=== PATIENT | male | born 1980 | race Caucasian/White ===

== ENCOUNTER 2018-02-14 15:01 | Emergency (ER) | payer MEDICAID, OTHER ==
[~2018-02-14] VITALS: Ht 180.3 cm; Wt 72.0 kg
[~2018-02-14 15:01] MED LIST: NO HOME MEDS
[2018-02-14] MEDS ORDERED: SULF1TAB49 PO (15:35)
[2018-02-14 15:48] VITALS: BP 115/71
== END 2018-02-14 15:49 | disposition home or self-care (01) ==
LOC: ER 15:02
DX: L03.115 Cellulitis of right lower limb (principal); G89.29 Other chronic pain; F17.200 Nicotine dependence, unspecified, uncomplicated; Z60.2 Problems related to living alone; Z98.890 Other specified postprocedural states; Z59.0 Homelessness; Z98.84 Bariatric surgery status; Z88.0 Allergy status to penicillin; Z88.1 Allergy status to other antibiotic agents; Z79.899 Other long term (current) drug therapy
CPT/HCPCS: 87070; 87077; 87186; 99284

== ENCOUNTER 2021-07-08 10:37 | Emergency (ER) | payer MEDICAID | END 2021-07-08 14:41 | disposition left against medical advice (07) | LOC: ER 10:37 | DX: Z00.8 Encounter for other general examination (principal); Z53.21 Procedure and treatment not carried out due to patient leaving prior to being seen by health care provider ==

== ENCOUNTER 2021-09-05 12:06 | Emergency (ER) | payer MEDICAID ==
[~2021-09-05] VITALS: Ht 180.3 cm; Wt 54.0 kg
[2021-09-05 13:32] LABS: BASOPHILS # (AUTO) 0.1 X10'3 (0-0.2); BASOPHILS % (AUTO) 0.4 % (0-1); EOSINOPHILS # (AUTO) 0.2 X10'3 (0-0.9); EOSINOPHILS % (AUTO) 1.6 % (0-6); HEMATOCRIT 40.7 % (42.0-52.0); HEMOGLOBIN 13.8 g/dl (14.0-17.9); LYMPHOCYTES # (AUTO) 1.2 X10'3 (1.1-4.8); LYMPHOCYTES % (AUTO) 8.6 % (21-51); MEAN CORPUSCULAR HGB CONC 33.9 g/dL (33.0-36.5); MEAN CORPUSCULAR VOLUME 91.5 FL (78-98); MONOCYTES # (AUTO) 1.3 X10'3 (0-0.9); MONOCYTES % (AUTO) 9.9 % (2-12); NEUTROPHILS # (AUTO) 10.6 X10'3 (1.8-7.7); NEUTROPHILS % (AUTO) 79.5 % (42-75); PLATELET COUNT 422 X10'3 (140-440); RED BLOOD COUNT 4.45 X10'6 (4.70-6.10); RED CELL DISTRIBUTION WIDTH 14.2 % (11.5-14.5); WHITE BLOOD COUNT 13.4 X10'3 (4.5-11.0)
[2021-09-05 13:46] LABS: ALANINE AMINOTRANSFERASE 24 U/L (12-78); ALBUMIN 3.2 G/DL (3.4-5.0); ALBUMIN/GLOBULIN RATIO 0.7 (1.1-1.5); ALKALINE PHOSPHATASE 124 IU/L (46-116); ANION GAP 6 (8-16); ASPARTATE AMINO TRANSFERASE 19 U/L (10-37); BILIRUBIN,TOTAL 0.4 MG/DL (0.1-1.0); BLOOD UREA NITROGEN 13 MG/DL (7-18); BUN/CREATININE RATIO 11.7 (5.4-32.0); CALCIUM 8.7 MG/DL (8.5-10.1); CHLORIDE 103 MMOL/L (99-107); CREATININE 1.11 MG/DL (0.60-1.10); GLUCOSE 112 MG/DL (70-104); LIPASE < 50 U/L (73-393); POTASSIUM 4.3 MMOL/L (3.5-5.1); SODIUM 139 MMOL/L (135-145); TOTAL CARBON DIOXIDE 30.4 MMOL/L (24-32); TOTAL PROTEIN 7.5 G/DL (6.4-8.2); eGFR 73 ML/MIN
[2021-09-05 14:17] LABS: CLARITY,URINE CLEAR (Clear); COLOR,URINE YELLOW (Yellow); GLUCOSE, URINE NEGATIVE (Neg); KETONES,URINE 15 mg/dl (Neg); LEUKOCYTE ESTERASE ,URINE NEGATIVE (Neg); NITRITES, URINE NEGATIVE (Neg); OCCULT BLOOD,URINE NEGATIVE (Neg); PH,URINE 5.5 (4.8-8.0); PROTEIN,URINE TRACE mg/dl (Neg); UROBILINOGEN,URINE 0.2 E.U/dL (0.2-1.0)
[2021-09-05 14:23] LABS: UA COLLECTION TYPE CLN CATCH MIDSTREAM
[2021-09-05 14:24] LABS: BACTERIA,URINE NONE SEEN /HPF (Neg); MUCUS STRANDS MODERATE /LPF (Neg); RBC,URINE NONE SEEN /HPF (0-2); SQUAMOUS EPITHELIAL CELL,UR FEW /LPF (FEW); WBC,URINE NONE SEEN /HPF (0-4)
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
[2021-09-05] MEDS ORDERED: acetaminophen 325mg tablet PO ONE (16:55)
[2021-09-05 17:33] LABS: ETHANOL < 0.010 GM/DL (0.0-0.010)
[2021-09-05] MEDS ORDERED: proparacaine 0.5% ophthalmic drops 15ml RIGHTEYE ONE (17:45)
[2021-09-05] MEDS ORDERED: ondansetron 4mg rapidly disintigrating tab PO ONE (17:45)
[2021-09-05] MEDS ORDERED: mag hydrox/Alum hydrox/simeth 30ml oral suspension PO ONE (17:45)
[2021-09-05] MEDS ORDERED: pantoprazole 40mg Tablet.DR PO ONE (17:45)
--- NOTE | 2021-09-05 18:00 | NUR ---
provider at bedside to assess pt's eye. pt given tylenol and oral zofran, requesting dinner tray. per provdier, wait to see if pt tolerates po meds prior to food.
[2021-09-05] MEDS ORDERED: ciprofloxacin 0.3% 2.5ml ophthalmic solution RIGHTEYE ONE (19:00)
[2021-09-05 20:30] LABS: URINE AMPHETAMINE SCREEN POSITIVE (Neg); URINE BARBITUATE SCREEN NEGATIVE (Neg); URINE BENZODIAZEPINES SCREEN NEGATIVE (Neg); URINE CANNABINOID SCREEN POSITIVE (Neg); URINE COCAINE SCREEN NEGATIVE (Neg); URINE METHADONE SCREEN NEGATIVE (Neg); URINE OPIATE SCREEN NEGATIVE (Neg); URINE PHENCYCLIDINE SCREEN NEGATIVE (Neg)
--- NOTE | 2021-09-05 20:53 | NUR ---
The patient moved to bed 22 in the ER overflow. He was calm and cooperative. He answered all the assessment questions appropriately and politely. He denies A/V hallucinations currently. He denies pain. He denies being suicidal. He does admit to some mild anxiety. He admits to meth use then added, "I don't plan to do it ever again" He was provided a snack and eye drops given. Patient made aware of phone and visiting hours.
--- NOTE | 2021-09-05 22:43 | NUR ---
Packet sent to [facility]
--- NOTE | 2021-09-06 00:33 | NUR ---
The patient appears to be sleeping
--- NOTE | 2021-09-06 02:05 | NUR ---
The patient appears to be sleeping
--- NOTE | 2021-09-06 04:26 | NUR ---
The patient appears to be sleeping
--- NOTE | 2021-09-06 06:12 | NUR ---
The patient appeared to have slept well throughout the night
--- NOTE | 2021-09-06 06:52 | NUR ---
The patient has a productive cough with clear sputum. He was asking for a bed staples and he was made aware of where the bathroom was.
--- NOTE | 2021-09-06 07:39 | NUR ---
THe patient is resting on his bed.
--- NOTE | 2021-09-06 09:16 | NUR ---
THe patient is resting on his bed
--- NOTE | 2021-09-06 09:49 | NUR ---
Patient's father, Edgar Anders, [phone]
--- NOTE | 2021-09-06 10:11 | NUR ---
[facility] at the bedside and interviewing the patient
--- NOTE | 2021-09-06 11:26 | NUR ---
The patient is bored and restless but cooperative
--- NOTE | 2021-09-06 12:21 | NUR ---
The patient ate 100% of his lunch. He is alert, oriented, pleasant and cooperative.
--- NOTE | 2021-09-06 13:09 | NUR ---
The patient very irritable and wanting staff to do things that he can do for himself ie in the am he asked for a bedpan, etc. When he wanted his curtain shut he was encouraged to get out of bed and close the curtain he became angry and making statements, "I should call the labor board. People aren't doing their jobs" He was made aware that the behavior was inappropriate.
--- NOTE | 2021-09-06 13:21 | NUR ---
Nurse to nurse with Chasity at [facility], [place]
--- NOTE | 2021-09-06 13:42 | NUR ---
The patient has been accepted at [facility]. [facility] street flusher driver will be here at 1430 to pick him up.
[2021-09-06 14:51] VITALS: BP 95/55
== END 2021-09-06 14:55 ==
LOC: ER 12:07
DX: S05.01XA Injury of conjunctiva and corneal abrasion without foreign body, right eye, initial encounter (principal); F31.9 Bipolar disorder, unspecified; Z20.822 Contact with and (suspected) exposure to COVID-19; F20.9 Schizophrenia, unspecified; R45.850 Homicidal ideations; F19.10 Other psychoactive substance abuse, uncomplicated; R10.31 Right lower quadrant pain; G89.29 Other chronic pain; F17.200 Nicotine dependence, unspecified, uncomplicated; F15.90 Other stimulant use, unspecified, uncomplicated; Z59.00 Homelessness unspecified; Z72.89 Other problems related to lifestyle; Z98.890 Other specified postprocedural states; Z88.0 Allergy status to penicillin; Z88.1 Allergy status to other antibiotic agents; X58.XXXA Exposure to other specified factors, initial encounter; Y93.89 Activity, other specified; Y92.89 Other specified places as the place of occurrence of the external cause; Y99.8 Other external cause status
CPT/HCPCS: 36415; 80053; 80305; 80320; 81001; 83690; 84145; 84443; 85025; 87635; 99285; C9803

== ENCOUNTER 2021-09-09 21:03 | Emergency (ER) | payer MEDICAID | END 2021-09-09 22:21 | disposition left against medical advice (07) | LOC: ER 21:04 | DX: R11.10 Vomiting, unspecified (principal); R50.9 Fever, unspecified; Z53.21 Procedure and treatment not carried out due to patient leaving prior to being seen by health care provider ==

== ENCOUNTER 2022-01-23 10:29 | Emergency (ER) | payer MEDICAID ==
[~2022-01-23] VITALS: Ht 175.3 cm; Wt 60.0 kg
[2022-01-23 10:47] VITALS: BP 137/82
[2022-01-23] MEDS ORDERED: ibuprofen tablet 400 MG TABLET PO ONE (14:50)
== END 2022-01-23 15:08 | disposition home or self-care (01) ==
LOC: ER 10:29
DX: M25.511 Pain in right shoulder (principal); G89.29 Other chronic pain; F31.9 Bipolar disorder, unspecified; F29 Unspecified psychosis not due to a substance or known physiological condition; F15.10 Other stimulant abuse, uncomplicated; F11.10 Opioid abuse, uncomplicated
CPT/HCPCS: 73030; 99283; A4565

== ENCOUNTER 2022-01-25 23:13 | Emergency (ER) | payer MEDICAID ==
[~2022-01-25] VITALS: Ht 180.3 cm; Wt 61.3 kg
== END 2022-01-26 00:16 | disposition home or self-care (01) ==
LOC: ER 23:14
DX: S90.822A Blister (nonthermal), left foot, initial encounter (principal); S90.821A Blister (nonthermal), right foot, initial encounter; G89.29 Other chronic pain; F31.9 Bipolar disorder, unspecified; F20.9 Schizophrenia, unspecified; F15.90 Other stimulant use, unspecified, uncomplicated; Z98.890 Other specified postprocedural states; Z72.89 Other problems related to lifestyle; Z88.0 Allergy status to penicillin; Z88.1 Allergy status to other antibiotic agents; X58.XXXA Exposure to other specified factors, initial encounter; Y93.89 Activity, other specified; Y92.89 Other specified places as the place of occurrence of the external cause; Y99.8 Other external cause status
CPT/HCPCS: 99281

== ENCOUNTER 2022-05-03 17:40 | Emergency (ER) | payer MEDICAID ==
[~2022-05-03] VITALS: Ht 162.6 cm; Wt 50.0 kg
[2022-05-03] MEDS ORDERED: albuterol 2.5 MG/3 ML nebule NEB ONE (21:25)
[2022-05-03] MEDS ORDERED: diphenhydrAMINE 25mg capsule PO ONE (21:25)
[2022-05-03] MEDS ORDERED: SULF1TAB49 PO (22:17)
[2022-05-03 22:20] VITALS: BP 142/78
== END 2022-05-03 22:27 | disposition home or self-care (01) ==
LOC: ER 17:41
DX: F15.10 Other stimulant abuse, uncomplicated (principal); F31.9 Bipolar disorder, unspecified; Z88.0 Allergy status to penicillin; Z88.1 Allergy status to other antibiotic agents
CPT/HCPCS: 71045; 94640; 94760; 99283; Q0163

== ENCOUNTER 2022-05-13 18:38 | Emergency (ER) | payer MEDICAID ==
[~2022-05-13] VITALS: Ht 165.1 cm; Wt 65.9 kg
[2022-05-13 19:23] VITALS: BP 106/81
[2022-05-13] MEDS ORDERED: albuterol 2.5 MG/3 ML nebule NEB ONE (20:10)
[2022-05-13] MEDS ORDERED: vancomycin/NS 1 GM ADD-VANTAGE 250 ML IV ONE (20:10)
[2022-05-13] MEDS ORDERED: ceFAZolin 1GM/D5W- ADD-VANTAGE 50 ML IV ONE (20:10)
[2022-05-13] MEDS ORDERED: normal saline 1000ML IV soln IVB ONE (20:20)
[2022-05-13 20:46] LABS: BASOPHILS # (AUTO) 0.1 X10'3 (0-0.2); BASOPHILS % (AUTO) 0.7 % (0-1); EOSINOPHILS # (AUTO) 0.3 X10'3 (0-0.9); EOSINOPHILS % (AUTO) 2.8 % (0-6); HEMATOCRIT 29.7 % (42.0-52.0); HEMOGLOBIN 9.9 g/dl (14.0-17.9); LYMPHOCYTES # (AUTO) 1.4 X10'3 (1.1-4.8); LYMPHOCYTES % (AUTO) 12.3 % (21-51); MEAN CORPUSCULAR HEMOGLOBIN 29.4 PG (27.0-31.0); MEAN CORPUSCULAR HGB CONC 33.3 g/dL (33.0-36.5); MEAN CORPUSCULAR VOLUME 88.3 FL (78-98); MEAN PLATELET VOLUME 6.4 FL (7.4-10.4); MONOCYTES # (AUTO) 1.1 X10'3 (0-0.9); MONOCYTES % (AUTO) 9.1 % (2-12); NEUTROPHILS # (AUTO) 8.7 X10'3 (1.8-7.7); NEUTROPHILS % (AUTO) 75.1 % (42-75); PLATELET COUNT 411 X10'3 (140-440); RED BLOOD COUNT 3.36 X10'6 (4.70-6.10); RED CELL DISTRIBUTION WIDTH 14.4 % (11.5-14.5); WHITE BLOOD COUNT 11.6 X10'3 (4.5-11.0)
[2022-05-13 21:00] LABS: ANION GAP 9 (8-16); BLOOD UREA NITROGEN 13 MG/DL (7-18); BUN/CREATININE RATIO 16.9 (5.4-32.0); CALCIUM 8.2 MG/DL (8.5-10.1); CHLORIDE 110 MMOL/L (99-107); CREATININE 0.77 MG/DL (0.60-1.10); GLUCOSE 169 MG/DL (70-104); SODIUM 150 MMOL/L (135-145); TOTAL CARBON DIOXIDE 31.4 MMOL/L (24-32); eGFR > 90 ML/MIN
[2022-05-13 21:01] LABS: ALANINE AMINOTRANSFERASE 16 U/L (12-78); ALBUMIN 2.2 G/DL (3.4-5.0); ALBUMIN/GLOBULIN RATIO 0.5 (1.1-1.5); ALKALINE PHOSPHATASE 97 IU/L (46-116); ASPARTATE AMINO TRANSFERASE 14 U/L (10-37); BILIRUBIN,TOTAL 0.1 MG/DL (0.1-1.0); TOTAL PROTEIN 6.5 G/DL (6.4-8.2)
[2022-05-13 21:11] LABS: POTASSIUM 2.9 MMOL/L (3.5-5.1)
[2022-05-13] MEDS ORDERED: POTASSIUM BICARB 20meq eff tab 20 MEQ TABLET.EFF PO ONE (21:55)
[2022-05-13] MEDS ORDERED: HYDROcodone/acetaminophen 5mg/325mg tablet PO ONE (22:10)
[2022-05-13] MEDS ORDERED: HYDR-3965 PO (22:12)
[2022-05-13] MEDS ORDERED: SULF1TAB49 PO (22:12)
--- NOTE | 2022-05-13 23:14 | NUR ---
PATIENT WAS BEING DC PER NURSE. PATIENT IS BEING RUDE AND DEMANDING, URINATING IN A DRINK CUP. IV WAS BEING REMOVED BY NURSE WHEN PATIENT STARTED TO CURSE AT THE NURSE AND PULLED OUT HIS OWN IV HASTILY. SECURITY CALLED TO ROOM TO SUPERVISE PATIENT DEPARTURE FROM ER.
== END 2022-05-13 23:16 | disposition home or self-care (01) ==
LOC: ER 18:39
DX: L03.818 Cellulitis of other sites (principal); Z20.822 Contact with and (suspected) exposure to COVID-19; E87.6 Hypokalemia; F20.9 Schizophrenia, unspecified; F31.9 Bipolar disorder, unspecified; F17.200 Nicotine dependence, unspecified, uncomplicated; F15.10 Other stimulant abuse, uncomplicated; G89.29 Other chronic pain; Z98.890 Other specified postprocedural states; Z88.0 Allergy status to penicillin; Z88.1 Allergy status to other antibiotic agents; Z79.899 Other long term (current) drug therapy
CPT/HCPCS: 36415; 71045; 80053; 83605; 85025; 87040; 87635; 94640; 96365; 96366; 99284; C9803; J3370; J7030

== ENCOUNTER 2023-06-18 18:37 | Emergency (ER) | payer MEDICAID ==
[~2023-06-18] VITALS: Ht 162.6 cm; Wt 65.9 kg
[2023-06-18 18:46] VITALS: RESP 18
[2023-06-18 20:16] LABS: BASOPHILS # (AUTO) 0.1 X10'3 (0-0.2); BASOPHILS % (AUTO) 1.5 % (0-1); EOSINOPHILS # (AUTO) 0.5 X10'3 (0-0.9); HEMATOCRIT 36.6 % (42.0-52.0); HEMOGLOBIN 11.9 g/dl (14.0-17.9); LYMPHOCYTES # (AUTO) 1.9 X10'3 (1.1-4.8); LYMPHOCYTES % (AUTO) 22.5 % (21-51); MEAN CORPUSCULAR HEMOGLOBIN 28.8 PG (27.0-31.0); MEAN CORPUSCULAR HGB CONC 32.5 g/dL (33.0-36.5); MEAN CORPUSCULAR VOLUME 88.7 FL (78-98); MEAN PLATELET VOLUME 7.7 FL (7.4-10.4); MONOCYTES # (AUTO) 0.8 X10'3 (0-0.9); MONOCYTES % (AUTO) 9.6 % (2-12); NEUTROPHILS # (AUTO) 5.2 X10'3 (1.8-7.7); NEUTROPHILS % (AUTO) 60.4 % (42-75); PLATELET COUNT 382 X10'3 (140-440); RED BLOOD COUNT 4.13 X10'6 (4.70-6.10); RED CELL DISTRIBUTION WIDTH 15.4 % (11.5-14.5); WHITE BLOOD COUNT 8.6 X10'3 (4.5-11.0)
[2023-06-18 20:21] LABS: BILIRUBIN,URINE NEGATIVE (Neg); CLARITY,URINE CLEAR (Clear); COLOR,URINE YELLOW (Yellow); GLUCOSE, URINE NEGATIVE (Neg); KETONES,URINE TRACE mg/dl (Neg); LEUKOCYTE ESTERASE ,URINE NEGATIVE (Neg); NITRITES, URINE NEGATIVE (Neg); OCCULT BLOOD,URINE NEGATIVE (Neg); PH,URINE 7.5 (4.8-8.0); PROTEIN,URINE NEGATIVE (Neg); UROBILINOGEN,URINE 0.2 E.U/dL (0.2-1.0)
[2023-06-18 20:25] LABS: ALANINE AMINOTRANSFERASE 19 U/L (12-78); ALBUMIN 3.1 G/DL (3.4-5.0); ALBUMIN/GLOBULIN RATIO 0.7 (1.1-1.5); ALKALINE PHOSPHATASE 122 IU/L (46-116); ANION GAP 4 (8-16); ASPARTATE AMINO TRANSFERASE 15 U/L (10-37); BILIRUBIN,TOTAL 0.1 MG/DL (0.1-1.0); BLOOD UREA NITROGEN 12 MG/DL (7-18); BUN/CREATININE RATIO 10.3 (10.0-20.0); CALCIUM 8.6 MG/DL (8.5-10.1); CHLORIDE 105 MMOL/L (99-107); CREATININE 1.17 MG/DL (0.60-1.10); ETHANOL < 10 MG/DL (<10); GLUCOSE 109 MG/DL (70-104); LIPASE 31 U/L (16-77); SODIUM 142 MMOL/L (135-145); TOTAL CARBON DIOXIDE 32.6 MMOL/L (24-32); TOTAL PROTEIN 7.3 G/DL (6.4-8.2); eCRCL 68 ML/MIN; eGFR 68 ML/MIN
[2023-06-18 20:30] VITALS: BP 128/78; PULSE 79; TEMP 98.4; O2SAT 99
[2023-06-18 20:31] LABS: URINE AMPHETAMINE SCREEN NEGATIVE (Neg); URINE BARBITUATE SCREEN NEGATIVE (Neg); URINE BENZODIAZEPINES SCREEN NEGATIVE (Neg); URINE CANNABINOID SCREEN POSITIVE (Neg); URINE COCAINE SCREEN NEGATIVE (Neg); URINE METHADONE SCREEN NEGATIVE (Neg); URINE OPIATE SCREEN NEGATIVE (Neg); URINE PHENCYCLIDINE SCREEN NEGATIVE (Neg)
[2023-06-18 20:36] LABS: UA COLLECTION TYPE CLN CATCH MIDSTREAM
== END 2023-06-19 06:26 | disposition left against medical advice (07) ==
LOC: ER 18:38
DX: M25.562 Pain in left knee (principal); R10.9 Unspecified abdominal pain; Z53.21 Procedure and treatment not carried out due to patient leaving prior to being seen by health care provider; V89.2XXA Person injured in unspecified motor-vehicle accident, traffic, initial encounter; Y93.89 Activity, other specified; Y92.89 Other specified places as the place of occurrence of the external cause; Y99.8 Other external cause status
CPT/HCPCS: 36415; 70450; 71045; 72170; 73564; 80053; 80305; 80320; 81003; 83690; 85025; 99281